=== PATIENT | male | born 1980 | race Caucasian/White ===

== ENCOUNTER 2017-02-19 22:15 | Emergency (ER) | payer OTHER ==
--- NOTE | ~2017-02-19 | CR63 ---
[facility] A Service of [facility] & [facility] RADIOLOGY TEXT RESULTS PATIENT: GELA ALDRICH LOCATION: SED : 76 UNIT #: [id number] AGE: [address]: MICHAEL CHOI SEX: M ORDER DR: [id number] [place] [id number] E MR#: [id number] Acc #: [id number] NAME: GELA ALDRICH : 1980 SEX: M STUDY DATE/TIME: 02/19/2017 22:07 UNIT: SED ROOM: STUDY DESCRIPTION: CR Chest 2 View Attending Physician: Michael Choi Aprn Ordering Physician: Michael Choi Aprn Primary Care Physician: Primary Care Physician No MEDICAL IMAGING REPORT This report is preliminary unless electronic signature is present. EXAM Chest PA and lateral 02/19/2017 HISTORY Chest pain, cough and fever for 2 days. FINDINGS PA and lateral examination of the chest upright shows a good expansion of the parenchyma with a normal distribution of the pulmonary vascularity. There is no indication of congestion, effusion, infiltrate, tumor, or nodular density. The pleural reflections and diaphragmatic contours are normal. The cardiac silhouette and mediastinal anatomy is within normal limits. IMPRESSION Normal chest. Dictated by... Duy Coleman M.D. THIS IS AN ELECTRONICALLY VERIFIED REPORT Duy Coleman M.D. at 02/20/2017 10:47 AM ALVARO/cierra TD: 02/20/2017 08:52 JOB #: [id number] MEDICAL IMAGING REPORT Page 1 of 1
[~2017-02-19 22:15] MED LIST: FLEXERIL10 MG PO; HYDROCODON-ACE1 EAC9 PO; LORTAB 5/500 TA1 TA1 PO; NO MEDICATIONS; PREDNISONE PO; ZITHROMAX1 G/PKT PO
[2017-02-19 22:31] LABS: INFLUENZA A NEG (NEG); INFLUENZA B NEG (NEG)
== END 2017-02-19 23:18 | disposition home or self-care (01) ==
LOC: SED 22:15
PROVIDERS: Nurse Practitioner Family
DX: J02.0 Streptococcal pharyngitis (principal); Z86.73 Personal history of transient ischemic attack (TIA), and cerebral infarction without residual deficits
CPT/HCPCS: 71020; 87804; 87880; 96372; 99283; J0561